=== PATIENT | male | born 1965 | race Caucasian/White ===

== ENCOUNTER 2018-01-14 10:33 | Inpatient (IN) | payer MEDICARE, MEDICAID ==
[~2018-01-14] VITALS: Ht 177.8 cm; Wt 92.3 kg
[2018-01-14 11:14] LABS: BASOPHILS % (AUTO) 0.3 % (0-1); EOSINOPHILS # (AUTO) 0.2 X10'3 (0-0.9); EOSINOPHILS % (AUTO) 2.6 % (0-6); HEMATOCRIT 36.3 % (42.0-52.0); HEMOGLOBIN 11.8 g/dl (14.0-17.9); LYMPHOCYTES # (AUTO) 1.4 X10'3 (1.1-4.8); MEAN CORPUSCULAR HEMOGLOBIN 29.2 PG (27.0-31.0); MEAN CORPUSCULAR HGB CONC 32.6 % (33.0-36.5); MEAN CORPUSCULAR VOLUME 89.5 FL (78-98); MEAN PLATELET VOLUME 7.8 FL (7.4-10.4); MONOCYTES # (AUTO) 0.5 X10'3 (0-0.9); MONOCYTES % (AUTO) 5.3 % (2-12); NEUTROPHILS % (AUTO) 76.8 % (42-75); PLATELET COUNT 305 X10'3 (140-440); RED BLOOD COUNT 4.06 X10'6 (4.70-6.10); RED CELL DISTRIBUTION WIDTH 15.7 % (11.5-14.5); WHITE BLOOD COUNT 9.1 X10'3 (4.5-11.0)
[2018-01-14] MEDS ORDERED: aspirin 81mg tab.chew PO ONE ×2 (11:15→12:00)
[2018-01-14] MEDS ORDERED: ondansetron/PF 4mg/2ml inj IV ONE (11:30)
[2018-01-14] MEDS ORDERED: haloperidol lactate 5mg/ml inj IM ONE (11:30)
[2018-01-14] MEDS ORDERED: normal saline 1000ML IV soln IVB ONE (11:30)
[2018-01-14] MEDS ORDERED: LORazepam 2 mg/ml vial IV ONE (11:30)
[2018-01-14 11:35] LABS: ALANINE AMINOTRANSFERASE 16 U/L (12-78); ALBUMIN 3.3 G/DL (3.4-5.0); ALBUMIN/GLOBULIN RATIO 0.5 (1.1-1.5); ALKALINE PHOSPHATASE 138 IU/L (46-116); AMYLASE 43 U/L (25-115); ANION GAP 14 (8-16); ASPARTATE AMINO TRANSFERASE 19 U/L (10-37); BILIRUBIN,TOTAL 0.7 MG/DL (0.1-1.0); BLOOD UREA NITROGEN 33 MG/DL (7-18); BUN/CREATININE RATIO 9.9 (5.4-32.0); CALCIUM 9.7 MG/DL (8.5-10.1); CHLORIDE 98 MMOL/L (99-107); CREATININE 3.32 MG/DL (0.60-1.10); LIPASE 64 U/L (73-393); POTASSIUM 4.3 MMOL/L (3.5-5.1); SODIUM 136 MMOL/L (135-145); TOTAL CARBON DIOXIDE 24.1 MMOL/L (24-32); TOTAL PROTEIN 9.7 G/DL (6.4-8.2); eGFR 20 ML/MIN
[2018-01-14 11:37] LABS: GLUCOSE 222 MG/DL (70-104)
[2018-01-14 11:44] LABS: INR 1.1 INR; PROTHROMBIN TIME 11.1 SECONDS (9.0-12.0)
[2018-01-14 12:00] LABS: ABG BASE EXCESS 1.5 mmol/L (-2.0-3.0); ABG HCO3 23.8 mmol/L (22.0-26.0); ABG OXYGEN SATURATION 97.3 % (95-98); ABG PCO2 (T) 30.2 mmHg (35.0-48.0); ABG PH (T) 7.514 (7.350-7.450); ABG PO2 (T) 91.7 mmHg (83-108); ALLEN'S TEST Positive; FCOHb 0.9 % (0.5-1.5); FMetHb 0.1 % (0.3-1.12); FO2Hb 96.3 % (94-100); TOTAL HEMOGLOBIN 12.3 G/dl (14.0-18.0)
[2018-01-14] MEDS ORDERED: heparin 10,000 units/1 ML INJ IV ONE (12:00)
[2018-01-14] MEDS ORDERED: pantoprazole 40 MG vial IV ONE (12:10)
[2018-01-14] MEDS ORDERED: famotidine/PF 10 mg/ml inj IV ONE (12:10)
[2018-01-14] MEDS: normal saline 1000ml 1,000 ML IV SCH (12:27)
[2018-01-14] MEDS ORDERED: morphine 2 MG/ML inj. syringe IV PRN (12:30)
[2018-01-14] MEDS ORDERED: acetaminophen 325mg tablet PO PRN ×2 (12:30)
[2018-01-14] MEDS ORDERED: magnesium Cl slow-release 64mg tablet PO PRN (12:30)
[2018-01-14] MEDS ORDERED: magnesium 4gm in 100ml NS 100 ML IV PRN (12:30)
[2018-01-14] MEDS ORDERED: potassium Cl 40MEQ/NS 500ml 500 ML IV PRN ×2 (12:30)
[2018-01-14] MEDS ORDERED: potassium Cl 20 mEq SR tablet PO PRN ×2 (12:30)
[2018-01-14] MEDS ORDERED: dextrose 50%-water 50ml dispensing syringe IV PRN ×2 (12:40)
[2018-01-14] MEDS ORDERED: MESSAGE TO PHARMACY PO ONE (12:40)
[2018-01-14] MEDS ORDERED: dextrose ORAL solution 15 GM/59 ML bottle PO PRN (12:40)
[2018-01-14] MEDS ORDERED: glucagon, human recombinant 1mg kit SUBCUT PRN (12:40)
[2018-01-14] MEDS: heparin 25,000 UNIT/250ml bag 250 ML IV SCH ×2 (12:53→20:47)
[2018-01-14] MEDS ORDERED: ASPI81TA52 PO (13:08)
[2018-01-14] MEDS ORDERED: CLON-529 PO (13:15)
[2018-01-14] MEDS ORDERED: DULO-31 PO (13:15)
[2018-01-14] MEDS ORDERED: AMLO-93 PO (13:15)
[2018-01-14] MEDS ORDERED: ACET1TAB14 PO (13:15)
[2018-01-14] MEDS ORDERED: ALLO100T PO (13:15)
[2018-01-14] MEDS ORDERED: CLOP75TA35 PO (13:15)
[2018-01-14] MEDS ORDERED: FLUT1AER INH (13:15)
[2018-01-14] MEDS ORDERED: PROM25TA14 PO (13:15)
[2018-01-14] MEDS ORDERED: QUET-1 PO (13:15)
[2018-01-14] MEDS ORDERED: PANT-47 PO (13:15)
[2018-01-14] MEDS ORDERED: METO-411 PO (13:15)
[2018-01-14] MEDS ORDERED: ALBU18HF2 INH (13:15)
[2018-01-14 15:00] VITALS: BP 159/86
[2018-01-14 18:00] VITALS: BP 150/70
[2018-01-14 19:53] LABS: HEMOGLOBIN A1C 7.5 % (4.5-6.2)
[2018-01-14 19:58] LABS: MAGNESIUM 1.6 MG/DL (1.5-2.4); PHOSPHORUS 3.7 MG/DL (2.3-4.5)
[2018-01-14] MEDS ORDERED: heparin, porcine 5000 units/ml vial SQ SCH (20:00)
[2018-01-14] MEDS: heparin 10,000 units/1 ML INJ IV PRN (20:38)
[2018-01-14 22:00] VITALS: BP 168/84
[2018-01-14] MEDS: insulin glargine (Lantus) pen - multi-dose SQ SCH (22:00)
[2018-01-15] VITALS (8 sets, daily range): BP systolic 108–188; BP diastolic 70–103
[2018-01-15] MEDS: normal saline 1000ml 1,000 ML IV SCH ×3 (02:06→22:22)
[2018-01-15 03:11] LABS: BASOPHILS % (AUTO) 0.4 % (0-1); EOSINOPHILS # (AUTO) 0.2 X10'3 (0-0.9); EOSINOPHILS % (AUTO) 2.9 % (0-6); HEMATOCRIT 34.4 % (42.0-52.0); HEMOGLOBIN 11.3 g/dl (14.0-17.9); LYMPHOCYTES # (AUTO) 1.5 X10'3 (1.1-4.8); LYMPHOCYTES % (AUTO) 20.4 % (21-51); MEAN CORPUSCULAR HEMOGLOBIN 29.6 PG (27.0-31.0); MEAN CORPUSCULAR HGB CONC 32.8 % (33.0-36.5); MEAN CORPUSCULAR VOLUME 90.2 FL (78-98); MEAN PLATELET VOLUME 8.1 FL (7.4-10.4); MONOCYTES # (AUTO) 0.6 X10'3 (0-0.9); MONOCYTES % (AUTO) 7.9 % (2-12); NEUTROPHILS # (AUTO) 5.2 X10'3 (1.8-7.7); NEUTROPHILS % (AUTO) 68.4 % (42-75); PLATELET COUNT 286 X10'3 (140-440); RED BLOOD COUNT 3.81 X10'6 (4.70-6.10); RED CELL DISTRIBUTION WIDTH 16.4 % (11.5-14.5); WHITE BLOOD COUNT 7.6 X10'3 (4.5-11.0)
[2018-01-15 03:49] LABS: ALANINE AMINOTRANSFERASE 15 U/L (12-78); ALBUMIN 2.8 G/DL (3.4-5.0); ALBUMIN/GLOBULIN RATIO 0.5 (1.1-1.5); ALKALINE PHOSPHATASE 115 IU/L (46-116); ANION GAP 11 (8-16); ASPARTATE AMINO TRANSFERASE 21 U/L (10-37); BILIRUBIN,TOTAL 0.4 MG/DL (0.1-1.0); BLOOD UREA NITROGEN 31 MG/DL (7-18); BUN/CREATININE RATIO 10.7 (5.4-32.0); CALCIUM 9.2 MG/DL (8.5-10.1); CHLORIDE 104 MMOL/L (99-107); CHOL/HDL RATIO 6.1 (0.00-4.99); CHOLESTEROL 244 MG/DL (0-200); HDL CHOLESTEROL 40 MG/DL (35-60); LDL CHOLESTEROL 178 MG/DL (50-100); MAGNESIUM 1.6 MG/DL (1.5-2.4); POTASSIUM 3.7 MMOL/L (3.5-5.1); SODIUM 141 MMOL/L (135-145); TOTAL CARBON DIOXIDE 25.6 MMOL/L (24-32); TOTAL PROTEIN 8.5 G/DL (6.4-8.2); TRIGLYCERIDES 104 MG/DL (20-135); eGFR 23 ML/MIN
[2018-01-15 03:51] LABS: GLUCOSE 193 MG/DL (70-104)
[2018-01-15] MEDS: K and/or MAG REPLACEMENT MC SCH (08:00)
[2018-01-15] MEDS: nicotine 14mg patch - 24hr TD SCH (08:09)
[2018-01-15] MEDS: insulin Lispro (HumaLOG) vial - multi-dose SQ SCH ×3 (09:13→19:18)
[2018-01-15] MEDS: heparin 25,000 UNIT/250ml bag 250 ML IV SCH (09:24)
[2018-01-15] MEDS: heparin 10,000 units/1 ML INJ IV PRN (09:26)
[2018-01-15] MEDS ORDERED: aspirin 81mg tablet.DR PO ONE (15:05)
[2018-01-15] MEDS: metoprolol tartrate 12.5mg (1/2 tablet) PO SCH (20:20)
[2018-01-15] MEDS: insulin glargine (Lantus) pen - multi-dose SQ SCH (21:09)
[2018-01-15] MEDS: hydrALAZINE 20mg/ml inj. IV PRN (22:34)
[2018-01-15] MEDS: HYDROcodone/acetaminophen 5mg/325mg tablet PO PRN (22:49)
[2018-01-15] MEDS: temazepam 15mg capsule PO PRN (22:49)
[2018-01-16] VITALS (8 sets, daily range): BP systolic 73–185; BP diastolic 41–98
[2018-01-16 06:49] LABS: ALANINE AMINOTRANSFERASE 15 U/L (12-78); ALBUMIN 2.8 G/DL (3.4-5.0); ALBUMIN/GLOBULIN RATIO 0.5 (1.1-1.5); ALKALINE PHOSPHATASE 110 IU/L (46-116); ANION GAP 12 (8-16); ASPARTATE AMINO TRANSFERASE 19 U/L (10-37); BILIRUBIN,TOTAL 0.5 MG/DL (0.1-1.0); BLOOD UREA NITROGEN 25 MG/DL (7-18); BUN/CREATININE RATIO 9.2 (5.4-32.0); CALCIUM 8.9 MG/DL (8.5-10.1); CHLORIDE 103 MMOL/L (99-107); CREATININE 2.72 MG/DL (0.60-1.10); MAGNESIUM 1.4 MG/DL (1.5-2.4); POTASSIUM 3.4 MMOL/L (3.5-5.1); SODIUM 140 MMOL/L (135-145); TOTAL CARBON DIOXIDE 25.4 MMOL/L (24-32); TOTAL PROTEIN 8.3 G/DL (6.4-8.2); eGFR 25 ML/MIN
[2018-01-16 06:53] LABS: GLUCOSE 189 MG/DL (70-104)
[2018-01-16 06:55] LABS: BASOPHILS % (AUTO) 0.5 % (0-1); EOSINOPHILS # (AUTO) 0.2 X10'3 (0-0.9); EOSINOPHILS % (AUTO) 2.8 % (0-6); HEMOGLOBIN 11.6 g/dl (14.0-17.9); LYMPHOCYTES # (AUTO) 1.5 X10'3 (1.1-4.8); LYMPHOCYTES % (AUTO) 20.6 % (21-51); MEAN CORPUSCULAR HEMOGLOBIN 29.2 PG (27.0-31.0); MEAN CORPUSCULAR VOLUME 88.6 FL (78-98); MONOCYTES # (AUTO) 0.7 X10'3 (0-0.9); MONOCYTES % (AUTO) 9.3 % (2-12); NEUTROPHILS % (AUTO) 66.8 % (42-75); PLATELET COUNT 280 X10'3 (140-440); RED BLOOD COUNT 3.95 X10'6 (4.70-6.10); WHITE BLOOD COUNT 7.4 X10'3 (4.5-11.0)
[2018-01-16] MEDS: K and/or MAG REPLACEMENT MC SCH (07:02)
[2018-01-16] MEDS: ondansetron/PF 4mg/2ml inj IV PRN (07:10)
[2018-01-16] MEDS: metoprolol tartrate 12.5mg (1/2 tablet) PO SCH ×2 (08:00→20:00)
[2018-01-16] MEDS: aspirin 81mg tablet.DR PO SCH (08:00)
[2018-01-16] MEDS: atorvastatin 20mg tablet PO SCH (08:00)
[2018-01-16] MEDS: insulin Lispro (HumaLOG) vial - multi-dose SQ SCH ×2 (08:43→12:34)
[2018-01-16] MEDS: hydrALAZINE 20mg/ml inj. IV PRN (08:59)
[2018-01-16] MEDS: nicotine 14mg patch - 24hr TD SCH (09:01)
[2018-01-16] MEDS: HYDROcodone/acetaminophen 5mg/325mg tablet PO PRN (09:08)
[2018-01-16] MEDS: magnesium hydroxide 30ml (MOM) UD suspension PO PRN (09:09)
[2018-01-16] MEDS ORDERED: LIDOcaine 1% 30ml vial 5 ML in potassium Cl 40MEQ/NS 500ml 500 ML IV PRN (10:00)
[2018-01-16] MEDS ORDERED: albuterol 2.5 MG/3 ML nebule NEB PRN (13:15)
[2018-01-16] MEDS: metoclopramide 5 mg/ml inj IV PRN (15:11)
[2018-01-16] MEDS: furosemide 40mg/4ml inj IV SCH (19:25)
[2018-01-16] MEDS: magnesium 1gm/100ml D5W IVPB 100 ML IV PRN ×2 (19:26→21:42)
[2018-01-16] MEDS: pantoprazole 40mg Tablet.DR PO SCH (20:00)
[2018-01-16] MEDS: albuterol 2.5 MG/3 ML nebule NEB SCH (20:12)
[2018-01-16] MEDS: BUDESONIDE 0.25 MG/2 ML AMPUL.NEB IH SCH (20:12)
[2018-01-16] MEDS: quetiapine 100mg tablet PO SCH (20:43)
[2018-01-16] MEDS: insulin glargine (Lantus) pen - multi-dose SQ SCH (20:48)
[2018-01-17] VITALS (8 sets, daily range): BP systolic 82–154; BP diastolic 48–85
[2018-01-17] MEDS: albuterol 2.5 MG/3 ML nebule NEB SCH ×4 (06:42→19:15)
[2018-01-17] MEDS: BUDESONIDE 0.25 MG/2 ML AMPUL.NEB IH SCH ×2 (06:42→19:15)
[2018-01-17 06:50] LABS: BASOPHILS % (AUTO) 0.3 % (0-1); EOSINOPHILS # (AUTO) 0.2 X10'3 (0-0.9); EOSINOPHILS % (AUTO) 2.9 % (0-6); HEMATOCRIT 32.4 % (42.0-52.0); HEMOGLOBIN 10.5 g/dl (14.0-17.9); LYMPHOCYTES # (AUTO) 1.4 X10'3 (1.1-4.8); LYMPHOCYTES % (AUTO) 18.7 % (21-51); MEAN CORPUSCULAR HEMOGLOBIN 29.1 PG (27.0-31.0); MEAN CORPUSCULAR HGB CONC 32.6 % (33.0-36.5); MEAN CORPUSCULAR VOLUME 89.2 FL (78-98); MEAN PLATELET VOLUME 8.3 FL (7.4-10.4); MONOCYTES # (AUTO) 0.6 X10'3 (0-0.9); MONOCYTES % (AUTO) 7.9 % (2-12); NEUTROPHILS # (AUTO) 5.4 X10'3 (1.8-7.7); NEUTROPHILS % (AUTO) 70.2 % (42-75); PLATELET COUNT 250 X10'3 (140-440); RED BLOOD COUNT 3.63 X10'6 (4.70-6.10); RED CELL DISTRIBUTION WIDTH 15.8 % (11.5-14.5); WHITE BLOOD COUNT 7.6 X10'3 (4.5-11.0)
[2018-01-17 07:18] LABS: ALANINE AMINOTRANSFERASE 11 U/L (12-78); ALBUMIN 2.7 G/DL (3.4-5.0); ALBUMIN/GLOBULIN RATIO 0.5 (1.1-1.5); ALKALINE PHOSPHATASE 101 IU/L (46-116); ANION GAP 12 (8-16); ASPARTATE AMINO TRANSFERASE 18 U/L (10-37); BILIRUBIN,TOTAL 0.4 MG/DL (0.1-1.0); BLOOD UREA NITROGEN 28 MG/DL (7-18); BUN/CREATININE RATIO 9.7 (5.4-32.0); CALCIUM 9.1 MG/DL (8.5-10.1); CHLORIDE 103 MMOL/L (99-107); CREATININE 2.88 MG/DL (0.60-1.10); GLUCOSE 204 MG/DL (70-104); MAGNESIUM 2.8 MG/DL (1.5-2.4); POTASSIUM 3.5 MMOL/L (3.5-5.1); SODIUM 139 MMOL/L (135-145); TOTAL CARBON DIOXIDE 23.6 MMOL/L (24-32); TOTAL PROTEIN 7.7 G/DL (6.4-8.2); eGFR 23 ML/MIN
[2018-01-17] MEDS: aspirin 81mg tablet.DR PO SCH ×2 (07:29→07:43)
[2018-01-17] MEDS: atorvastatin 20mg tablet PO SCH (07:41)
[2018-01-17] MEDS: allopurinol 100mg tablet PO SCH (07:41)
[2018-01-17] MEDS: clopidogrel 75mg tablet PO SCH (07:42)
[2018-01-17] MEDS: pantoprazole 40mg Tablet.DR PO SCH ×2 (07:42→20:48)
[2018-01-17] MEDS: duloxetine 30mg CAPSULE.DR PO SCH (07:42)
[2018-01-17] MEDS: furosemide 40mg/4ml inj IV SCH ×2 (07:43→20:48)
[2018-01-17] MEDS: nicotine 14mg patch - 24hr TD SCH (07:43)
[2018-01-17] MEDS: metoprolol tartrate 12.5mg (1/2 tablet) PO SCH ×2 (07:48→20:48)
[2018-01-17] MEDS: metoprolol succinate 25mg (24-HOUR) SR. Tablet PO SCH (07:49)
[2018-01-17] MEDS: lisinopril 20mg tablet PO SCH (07:49)
[2018-01-17] MEDS: amLODIPine 5mg tablet PO SCH (07:49)
[2018-01-17] MEDS: K and/or MAG REPLACEMENT MC SCH (08:00)
[2018-01-17] MEDS ORDERED: duloxetine 30mg CAPSULE.DR PO SCH (08:00)
[2018-01-17] MEDS: NUT.TX.GLUC.INTOLER,LAC-FR,SOY (GLUCERNA) 237 ML PO SCH ×2 (08:00→13:00)
[2018-01-17] MEDS: insulin Lispro (HumaLOG) vial - multi-dose SQ SCH ×3 (09:18→21:20)
[2018-01-17] MEDS: quetiapine 100mg tablet PO SCH (20:51)
[2018-01-17] MEDS: insulin glargine (Lantus) pen - multi-dose SQ SCH (21:21)
[2018-01-18] VITALS (14 sets, daily range): BP systolic 69–177; BP diastolic 45–90
[2018-01-18 05:39] LABS: BASOPHILS % (AUTO) 0.4 % (0-1); EOSINOPHILS # (AUTO) 0.3 X10'3 (0-0.9); EOSINOPHILS % (AUTO) 3.6 % (0-6); HEMATOCRIT 31.5 % (42.0-52.0); HEMOGLOBIN 10.3 g/dl (14.0-17.9); LYMPHOCYTES # (AUTO) 1.9 X10'3 (1.1-4.8); LYMPHOCYTES % (AUTO) 25.5 % (21-51); MEAN CORPUSCULAR HEMOGLOBIN 29.2 PG (27.0-31.0); MEAN CORPUSCULAR HGB CONC 32.7 % (33.0-36.5); MEAN CORPUSCULAR VOLUME 89.2 FL (78-98); MEAN PLATELET VOLUME 8.3 FL (7.4-10.4); MONOCYTES # (AUTO) 0.7 X10'3 (0-0.9); MONOCYTES % (AUTO) 9.4 % (2-12); NEUTROPHILS # (AUTO) 4.6 X10'3 (1.8-7.7); NEUTROPHILS % (AUTO) 61.1 % (42-75); PLATELET COUNT 244 X10'3 (140-440); RED BLOOD COUNT 3.54 X10'6 (4.70-6.10); RED CELL DISTRIBUTION WIDTH 16.5 % (11.5-14.5); WHITE BLOOD COUNT 7.5 X10'3 (4.5-11.0)
[2018-01-18 06:01] LABS: ALANINE AMINOTRANSFERASE 17 U/L (12-78); ALBUMIN 2.9 G/DL (3.4-5.0); ALBUMIN/GLOBULIN RATIO 0.5 (1.1-1.5); ALKALINE PHOSPHATASE 115 IU/L (46-116); ANION GAP 11 (8-16); ASPARTATE AMINO TRANSFERASE 21 U/L (10-37); BILIRUBIN,TOTAL 0.4 MG/DL (0.1-1.0); BLOOD UREA NITROGEN 36 MG/DL (7-18); BUN/CREATININE RATIO 10.9 (5.4-32.0); CALCIUM 9.3 MG/DL (8.5-10.1); CHLORIDE 101 MMOL/L (99-107); CREATININE 3.29 MG/DL (0.60-1.10); MAGNESIUM 2.5 MG/DL (1.5-2.4); POTASSIUM 3.5 MMOL/L (3.5-5.1); SODIUM 138 MMOL/L (135-145); TOTAL CARBON DIOXIDE 26.5 MMOL/L (24-32); TOTAL PROTEIN 8.3 G/DL (6.4-8.2); eGFR 20 ML/MIN
[2018-01-18] MEDS ORDERED: normal saline 1000ml 250 ML IV PRN (06:02)
[2018-01-18] MEDS ORDERED: normal saline 1000ml 100 ML IV PRN (06:02)
[2018-01-18 06:04] LABS: GLUCOSE 188 MG/DL (70-104)
[2018-01-18] MEDS ORDERED: heparin 1,000 units/ml 10ml inj HE ONE ×2 (06:10)
[2018-01-18] MEDS: albuterol 2.5 MG/3 ML nebule NEB SCH ×4 (07:00→20:56)
[2018-01-18] MEDS: BUDESONIDE 0.25 MG/2 ML AMPUL.NEB IH SCH ×2 (07:20→20:00)
[2018-01-18] MEDS: metoprolol succinate 25mg (24-HOUR) SR. Tablet PO SCH (08:00)
[2018-01-18] MEDS: K and/or MAG REPLACEMENT MC SCH (08:00)
[2018-01-18] MEDS: aspirin 81mg tablet.DR PO SCH ×2 (08:00→09:19)
[2018-01-18] MEDS: clopidogrel 75mg tablet PO SCH (08:00)
[2018-01-18] MEDS: amLODIPine 5mg tablet PO SCH (09:19)
[2018-01-18] MEDS: metoprolol tartrate 12.5mg (1/2 tablet) PO SCH ×2 (09:19→21:01)
[2018-01-18] MEDS: allopurinol 100mg tablet PO SCH (09:19)
[2018-01-18] MEDS: pantoprazole 40mg Tablet.DR PO SCH ×2 (09:20→21:02)
[2018-01-18] MEDS: lisinopril 20mg tablet PO SCH (09:20)
[2018-01-18] MEDS: duloxetine 30mg CAPSULE.DR PO SCH (09:20)
[2018-01-18] MEDS: atorvastatin 20mg tablet PO SCH (09:20)
[2018-01-18] MEDS: furosemide 40mg/4ml inj IV SCH ×3 (09:26→21:00)
[2018-01-18] MEDS: insulin Lispro (HumaLOG) vial - multi-dose SQ SCH ×2 (09:26→13:05)
[2018-01-18] MEDS: nicotine 14mg patch - 24hr TD SCH (09:35)
[2018-01-18] MEDS ORDERED: midazolam 2 mg/2 ml injection IV PRN (10:40)
[2018-01-18] MEDS ORDERED: LIDOcaine 1%/PF 5ML 10 MG/ML VIAL SQ ONE (10:40)
[2018-01-18] MEDS ORDERED: fentaNYL/PF 50MCG/1 ML 2ML syringe IV PRN (10:40)
[2018-01-18] MEDS ORDERED: heparin 1,000 units/ml 10ml inj ICATH ONE (10:40)
[2018-01-18] MEDS ORDERED: LIDOcaine 1%/PF 5ML 10 MG/ML VIAL ONE (10:56)
[2018-01-18] MEDS ORDERED: heparin 1,000unit/ml 10ml vial 10 ML ONE (11:12)
[2018-01-18] MEDS ORDERED: fentaNYL/PF 50MCG/1 ML 2ML syringe ONE (11:13)
[2018-01-18] MEDS ORDERED: midazolam 2 mg/2 ml injection ONE (11:13)
[2018-01-18] MEDS ORDERED: ondansetron/PF 4mg/2ml inj ONE (11:41)
[2018-01-18] MEDS ORDERED: ondansetron/PF 4mg/2ml inj IV ONE (11:45)
[2018-01-18] MEDS: NUT.TX.GLUC.INTOLER,LAC-FR,SOY (GLUCERNA) 237 ML PO SCH (18:00)
[2018-01-18] MEDS: insulin glargine (Lantus) pen - multi-dose SQ SCH (21:00)
[2018-01-18] MEDS: quetiapine 100mg tablet PO SCH (21:02)
[2018-01-19] VITALS (7 sets, daily range): BP systolic 85–147; BP diastolic 55–75
[2018-01-19 06:33] LABS: BASOPHILS # (AUTO) 0.1 X10'3 (0-0.2); BASOPHILS % (AUTO) 0.7 % (0-1); EOSINOPHILS # (AUTO) 0.3 X10'3 (0-0.9); EOSINOPHILS % (AUTO) 3.2 % (0-6); HEMATOCRIT 35.4 % (42.0-52.0); HEMOGLOBIN 11.7 g/dl (14.0-17.9); LYMPHOCYTES # (AUTO) 1.8 X10'3 (1.1-4.8); LYMPHOCYTES % (AUTO) 23.2 % (21-51); MEAN CORPUSCULAR HEMOGLOBIN 29.6 PG (27.0-31.0); MEAN CORPUSCULAR VOLUME 89.7 FL (78-98); MEAN PLATELET VOLUME 8.2 FL (7.4-10.4); MONOCYTES # (AUTO) 0.8 X10'3 (0-0.9); MONOCYTES % (AUTO) 9.4 % (2-12); NEUTROPHILS # (AUTO) 5.1 X10'3 (1.8-7.7); NEUTROPHILS % (AUTO) 63.5 % (42-75); PLATELET COUNT 261 X10'3 (140-440); RED BLOOD COUNT 3.95 X10'6 (4.70-6.10); RED CELL DISTRIBUTION WIDTH 16.7 % (11.5-14.5)
[2018-01-19 06:52] LABS: ALANINE AMINOTRANSFERASE 17 U/L (12-78); ALBUMIN 2.8 G/DL (3.4-5.0); ALBUMIN/GLOBULIN RATIO 0.5 (1.1-1.5); ALKALINE PHOSPHATASE 114 IU/L (46-116); ANION GAP 8 (8-16); ASPARTATE AMINO TRANSFERASE 20 U/L (10-37); BILIRUBIN,TOTAL 0.6 MG/DL (0.1-1.0); BLOOD UREA NITROGEN 26 MG/DL (7-18); BUN/CREATININE RATIO 9.2 (5.4-32.0); CALCIUM 9.2 MG/DL (8.5-10.1); CHLORIDE 100 MMOL/L (99-107); CREATININE 2.82 MG/DL (0.60-1.10); GLUCOSE 160 MG/DL (70-104); POTASSIUM 3.7 MMOL/L (3.5-5.1); SODIUM 136 MMOL/L (135-145); TOTAL PROTEIN 8.1 G/DL (6.4-8.2); eGFR 24 ML/MIN
[2018-01-19] MEDS: albuterol 2.5 MG/3 ML nebule NEB SCH ×4 (07:22→19:46)
[2018-01-19] MEDS: BUDESONIDE 0.25 MG/2 ML AMPUL.NEB IH SCH ×2 (07:22→19:46)
[2018-01-19] MEDS: clopidogrel 75mg tablet PO SCH (07:26)
[2018-01-19] MEDS: pantoprazole 40mg Tablet.DR PO SCH ×2 (07:26→22:31)
[2018-01-19] MEDS: metoprolol tartrate 12.5mg (1/2 tablet) PO SCH ×2 (07:27→22:31)
[2018-01-19] MEDS: amLODIPine 5mg tablet PO SCH (07:27)
[2018-01-19] MEDS: allopurinol 100mg tablet PO SCH (07:27)
[2018-01-19] MEDS: aspirin 81mg tablet.DR PO SCH ×2 (07:27→07:29)
[2018-01-19] MEDS: atorvastatin 20mg tablet PO SCH (07:28)
[2018-01-19] MEDS: lisinopril 20mg tablet PO SCH (07:28)
[2018-01-19] MEDS: furosemide 40mg/4ml inj IV SCH ×2 (07:28→22:41)
[2018-01-19] MEDS: duloxetine 30mg CAPSULE.DR PO SCH (07:28)
[2018-01-19] MEDS: nicotine 14mg patch - 24hr TD SCH (07:28)
[2018-01-19] MEDS: metoprolol succinate 25mg (24-HOUR) SR. Tablet PO SCH (07:29)
[2018-01-19] MEDS: K and/or MAG REPLACEMENT MC SCH (08:00)
[2018-01-19] MEDS: HYDROcodone/acetaminophen 5mg/325mg tablet PO PRN (09:46)
[2018-01-19] MEDS: insulin Lispro (HumaLOG) vial - multi-dose SQ SCH ×3 (09:51→19:23)
[2018-01-19] MEDS ORDERED: normal saline 1000ml 250 ML IV PRN (10:58)
[2018-01-19] MEDS ORDERED: heparin 1,000unit/ml 10ml vial 10 ML IV ONE (10:58)
[2018-01-19] MEDS ORDERED: heparin 1,000 units/ml 10ml inj HE ONE ×2 (11:05)
[2018-01-19] MEDS ORDERED: albumin (human) 25% 100ml IV 100 ML IV ONE (11:50)
[2018-01-19] MEDS: ondansetron/PF 4mg/2ml inj IV PRN (19:25)
[2018-01-19] MEDS: quetiapine 100mg tablet PO SCH (22:31)
[2018-01-19] MEDS: temazepam 15mg capsule PO PRN (22:31)
[2018-01-19] MEDS: insulin glargine (Lantus) pen - multi-dose SQ SCH (22:40)
[2018-01-20] VITALS (8 sets, daily range): BP systolic 80–164; BP diastolic 48–91
[2018-01-20 07:12] LABS: HBSAG SCREEN Negative (Negative)
[2018-01-20] MEDS: BUDESONIDE 0.25 MG/2 ML AMPUL.NEB IH SCH ×2 (07:22→20:12)
[2018-01-20] MEDS: albuterol 2.5 MG/3 ML nebule NEB SCH ×4 (07:22→20:12)
[2018-01-20] MEDS: ondansetron/PF 4mg/2ml inj IV PRN (07:40)
[2018-01-20] MEDS: furosemide 40mg/4ml inj IV SCH (07:40)
[2018-01-20] MEDS: metoprolol succinate 25mg (24-HOUR) SR. Tablet PO SCH (08:00)
[2018-01-20] MEDS: duloxetine 30mg CAPSULE.DR PO SCH (08:00)
[2018-01-20] MEDS: pantoprazole 40mg Tablet.DR PO SCH ×2 (08:00→20:35)
[2018-01-20] MEDS: allopurinol 100mg tablet PO SCH (08:00)
[2018-01-20] MEDS: atorvastatin 20mg tablet PO SCH (08:00)
[2018-01-20] MEDS: clopidogrel 75mg tablet PO SCH (08:00)
[2018-01-20] MEDS: metoprolol tartrate 12.5mg (1/2 tablet) PO SCH ×2 (08:00→20:35)
[2018-01-20] MEDS: K and/or MAG REPLACEMENT MC SCH (08:00)
[2018-01-20] MEDS: amLODIPine 5mg tablet PO SCH (08:00)
[2018-01-20] MEDS: nicotine 14mg patch - 24hr TD SCH (08:00)
[2018-01-20] MEDS: lisinopril 20mg tablet PO SCH (08:00)
[2018-01-20] MEDS: aspirin 81mg tablet.DR PO SCH ×2 (08:00)
[2018-01-20] MEDS ORDERED: normal saline 500ml IV soln 500 ML IV ONE (09:55)
[2018-01-20] MEDS: metoclopramide 5 mg/ml inj IV PRN (12:10)
[2018-01-20] MEDS: insulin Lispro (HumaLOG) vial - multi-dose SQ SCH (13:06)
[2018-01-20] MEDS ORDERED: normal saline 1000ml 1,000 ML IV ONE (17:25)
[2018-01-20] MEDS: quetiapine 100mg tablet PO SCH (20:35)
[2018-01-20] MEDS: insulin glargine (Lantus) pen - multi-dose SQ SCH (20:44)
[2018-01-20] MEDS: magnesium hydroxide 30ml (MOM) UD suspension PO PRN (20:51)
[2018-01-21 03:00] VITALS: BP 146/76
[2018-01-21 05:39] LABS: MAGNESIUM 2.1 MG/DL (1.5-2.4)
[2018-01-21] MEDS: duloxetine 30mg CAPSULE.DR PO SCH (07:49)
[2018-01-21] MEDS: metoprolol succinate 25mg (24-HOUR) SR. Tablet PO SCH (07:51)
[2018-01-21] MEDS: aspirin 81mg tablet.DR PO SCH ×2 (07:52→08:00)
[2018-01-21] MEDS: metoprolol tartrate 12.5mg (1/2 tablet) PO SCH ×2 (07:52→20:00)
[2018-01-21] MEDS: pantoprazole 40mg Tablet.DR PO SCH ×2 (07:52→20:00)
[2018-01-21] MEDS: clopidogrel 75mg tablet PO SCH (07:52)
[2018-01-21] MEDS: atorvastatin 20mg tablet PO SCH (07:53)
[2018-01-21] MEDS: amLODIPine 5mg tablet PO SCH (07:53)
[2018-01-21] MEDS: allopurinol 100mg tablet PO SCH (07:53)
[2018-01-21] MEDS: nicotine 14mg patch - 24hr TD SCH (07:55)
[2018-01-21] MEDS: BUDESONIDE 0.25 MG/2 ML AMPUL.NEB IH SCH ×2 (08:00→20:00)
[2018-01-21] MEDS: lisinopril 20mg tablet PO SCH (08:00)
[2018-01-21] MEDS: K and/or MAG REPLACEMENT MC SCH (08:00)
[2018-01-21] MEDS: albuterol 2.5 MG/3 ML nebule NEB SCH ×3 (08:21→16:24)
[2018-01-21] MEDS ORDERED: normal saline 1000ml 250 ML IV PRN (08:56)
[2018-01-21] MEDS ORDERED: heparin 1,000unit/ml 10ml vial 10 ML IV ONE (08:56)
[2018-01-21 09:00] VITALS: BP_SYST 163; BP_SYST 88; BP_DIAS 55; BP_DIAS 97
[2018-01-21] MEDS ORDERED: heparin 1,000 units/ml 10ml inj HE ONE ×2 (09:00)
[2018-01-21 09:16] VITALS: BP 154/85
[2018-01-21 09:24] LABS: BASOPHILS # (AUTO) 0.1 X10'3 (0-0.2); BASOPHILS % (AUTO) 0.7 % (0-1); EOSINOPHILS # (AUTO) 0.2 X10'3 (0-0.9); EOSINOPHILS % (AUTO) 2.9 % (0-6); HEMATOCRIT 34.9 % (42.0-52.0); HEMOGLOBIN 11.5 g/dl (14.0-17.9); LYMPHOCYTES # (AUTO) 1.4 X10'3 (1.1-4.8); LYMPHOCYTES % (AUTO) 18.7 % (21-51); MEAN CORPUSCULAR HEMOGLOBIN 29.6 PG (27.0-31.0); MEAN CORPUSCULAR HGB CONC 33.1 % (33.0-36.5); MEAN CORPUSCULAR VOLUME 89.6 FL (78-98); MEAN PLATELET VOLUME 9.8 FL (7.4-10.4); MONOCYTES # (AUTO) 0.9 X10'3 (0-0.9); MONOCYTES % (AUTO) 12.2 % (2-12); NEUTROPHILS % (AUTO) 65.5 % (42-75); PLATELET COUNT 235 X10'3 (140-440); RED BLOOD COUNT 3.89 X10'6 (4.70-6.10); RED CELL DISTRIBUTION WIDTH 16.9 % (11.5-14.5); WHITE BLOOD COUNT 7.6 X10'3 (4.5-11.0)
[2018-01-21 09:25] LABS: ALANINE AMINOTRANSFERASE 22 U/L (12-78); ALBUMIN 3.1 G/DL (3.4-5.0); ALBUMIN/GLOBULIN RATIO 0.6 (1.1-1.5); ALKALINE PHOSPHATASE 111 IU/L (46-116); ANION GAP 10 (8-16); ASPARTATE AMINO TRANSFERASE 25 U/L (10-37); BILIRUBIN,TOTAL 0.5 MG/DL (0.1-1.0); BLOOD UREA NITROGEN 41 MG/DL (7-18); BUN/CREATININE RATIO 11.5 (5.4-32.0); CALCIUM 9.3 MG/DL (8.5-10.1); CHLORIDE 101 MMOL/L (99-107); CREATININE 3.56 MG/DL (0.60-1.10); GLUCOSE 228 MG/DL (70-104); POTASSIUM 4.1 MMOL/L (3.5-5.1); SODIUM 139 MMOL/L (135-145); TOTAL CARBON DIOXIDE 28.4 MMOL/L (24-32); TOTAL PROTEIN 8.2 G/DL (6.4-8.2); eGFR 18 ML/MIN
[2018-01-21 09:42] LABS: PHOSPHORUS 4.8 MG/DL (2.3-4.5)
[2018-01-21] MEDS: insulin Lispro (HumaLOG) vial - multi-dose SQ SCH ×3 (10:27→21:57)
[2018-01-21 11:00] VITALS: BP 127/87
[2018-01-21] MEDS: ondansetron/PF 4mg/2ml inj IV PRN ×2 (14:15→20:00)
[2018-01-21] MEDS: magnesium hydroxide 30ml (MOM) UD suspension PO PRN (17:37)
[2018-01-21 19:00] VITALS: BP 126/74
[2018-01-21] MEDS: quetiapine 100mg tablet PO SCH (21:00)
[2018-01-21] MEDS: insulin glargine (Lantus) pen - multi-dose SQ SCH (21:55)
[2018-01-21 23:00] VITALS: BP 116/74
[2018-01-22] VITALS (7 sets, daily range): BP systolic 89–154; BP diastolic 50–94
[2018-01-22 05:22] LABS: BASOPHILS % (AUTO) 0.4 % (0-1); EOSINOPHILS # (AUTO) 0.3 X10'3 (0-0.9); EOSINOPHILS % (AUTO) 3.8 % (0-6); HEMATOCRIT 35.6 % (42.0-52.0); HEMOGLOBIN 11.5 g/dl (14.0-17.9); LYMPHOCYTES % (AUTO) 27.8 % (21-51); MEAN CORPUSCULAR HGB CONC 32.2 % (33.0-36.5); MEAN CORPUSCULAR VOLUME 89.9 FL (78-98); MEAN PLATELET VOLUME 9.2 FL (7.4-10.4); MONOCYTES # (AUTO) 0.8 X10'3 (0-0.9); MONOCYTES % (AUTO) 11.3 % (2-12); NEUTROPHILS # (AUTO) 4.1 X10'3 (1.8-7.7); NEUTROPHILS % (AUTO) 56.7 % (42-75); PLATELET COUNT 235 X10'3 (140-440); RED BLOOD COUNT 3.96 X10'6 (4.70-6.10); WHITE BLOOD COUNT 7.2 X10'3 (4.5-11.0)
[2018-01-22 06:01] LABS: ALBUMIN 2.9 G/DL (3.4-5.0); ANION GAP 8 (8-16); BLOOD UREA NITROGEN 26 MG/DL (7-18); BUN/CREATININE RATIO 10.4 (5.4-32.0); CALCIUM 9.3 MG/DL (8.5-10.1); CHLORIDE 101 MMOL/L (99-107); CREATININE 2.51 MG/DL (0.60-1.10); GLUCOSE 121 MG/DL (70-104); MAGNESIUM 2.3 MG/DL (1.5-2.4); PHOSPHORUS 3.6 MG/DL (2.3-4.5); POTASSIUM 3.7 MMOL/L (3.5-5.1); SODIUM 139 MMOL/L (135-145); eGFR 27 ML/MIN
[2018-01-22] MEDS: albuterol 2.5 MG/3 ML nebule NEB SCH ×4 (07:00→19:00)
[2018-01-22] MEDS: aspirin 81mg tablet.DR PO SCH ×2 (08:00→08:24)
[2018-01-22] MEDS: BUDESONIDE 0.25 MG/2 ML AMPUL.NEB IH SCH ×2 (08:00→19:56)
[2018-01-22] MEDS: clopidogrel 75mg tablet PO SCH (08:19)
[2018-01-22] MEDS: atorvastatin 20mg tablet PO SCH (08:20)
[2018-01-22] MEDS: amLODIPine 5mg tablet PO SCH (08:20)
[2018-01-22] MEDS: lisinopril 20mg tablet PO SCH (08:21)
[2018-01-22] MEDS: duloxetine 30mg CAPSULE.DR PO SCH (08:24)
[2018-01-22] MEDS: pantoprazole 40mg Tablet.DR PO SCH ×2 (08:24→20:26)
[2018-01-22] MEDS: allopurinol 100mg tablet PO SCH (08:25)
[2018-01-22] MEDS: nicotine 14mg patch - 24hr TD SCH (08:25)
[2018-01-22] MEDS: NUT.TX.GLUC.INTOLER,LAC-FR,SOY (GLUCERNA) 237 ML PO SCH ×3 (08:26→18:00)
[2018-01-22] MEDS: K and/or MAG REPLACEMENT MC SCH (08:27)
[2018-01-22] MEDS: insulin Lispro (HumaLOG) vial - multi-dose SQ SCH ×3 (09:07→18:50)
[2018-01-22] MEDS: metoprolol succinate 25mg (24-HOUR) SR. Tablet PO SCH (09:09)
[2018-01-22] MEDS ORDERED: polyethylene glycol 3350 17gm powd pack PO ONE (09:35)
[2018-01-22] MEDS ORDERED: docusate sod 100mg capsule PO ONE (09:35)
[2018-01-22] MEDS: albumin (human) 25% 100ml IV 100 ML IV SCH ×2 (17:28→23:38)
[2018-01-22] MEDS: midodrine tablet 2.5 MG TABLET PO SCH ×2 (17:28→23:38)
[2018-01-22] MEDS: polyethylene glycol 3350 17gm powd pack PO SCH (20:22)
[2018-01-22] MEDS: docusate sod 100mg capsule PO SCH (20:25)
[2018-01-22] MEDS: QUEtiapine 25mg tablet PO SCH (20:26)
[2018-01-22] MEDS: insulin glargine (Lantus) pen - multi-dose SQ SCH (22:03)
[2018-01-23] VITALS (7 sets, daily range): BP systolic 105–170; BP diastolic 69–98
[2018-01-23] MEDS ORDERED: midodrine 5mg tablet PO SCH
[2018-01-23] MEDS: temazepam 15mg capsule PO PRN (00:01)
[2018-01-23 05:25] LABS: BASOPHILS % (AUTO) 0.5 % (0-1); EOSINOPHILS # (AUTO) 0.2 X10'3 (0-0.9); EOSINOPHILS % (AUTO) 2.6 % (0-6); HEMATOCRIT 34.6 % (42.0-52.0); HEMOGLOBIN 11.4 g/dl (14.0-17.9); LYMPHOCYTES # (AUTO) 2.2 X10'3 (1.1-4.8); LYMPHOCYTES % (AUTO) 28.3 % (21-51); MEAN CORPUSCULAR HEMOGLOBIN 29.3 PG (27.0-31.0); MEAN CORPUSCULAR VOLUME 88.6 FL (78-98); MEAN PLATELET VOLUME 9.1 FL (7.4-10.4); MONOCYTES # (AUTO) 0.7 X10'3 (0-0.9); MONOCYTES % (AUTO) 8.9 % (2-12); NEUTROPHILS # (AUTO) 4.6 X10'3 (1.8-7.7); NEUTROPHILS % (AUTO) 59.7 % (42-75); PLATELET COUNT 217 X10'3 (140-440); RED BLOOD COUNT 3.91 X10'6 (4.70-6.10); RED CELL DISTRIBUTION WIDTH 16.5 % (11.5-14.5); WHITE BLOOD COUNT 7.7 X10'3 (4.5-11.0)
[2018-01-23 05:51] LABS: ALBUMIN 3.5 G/DL (3.4-5.0); ANION GAP 10 (8-16); BLOOD UREA NITROGEN 31 MG/DL (7-18); BUN/CREATININE RATIO 10.7 (5.4-32.0); CALCIUM 9.3 MG/DL (8.5-10.1); CHLORIDE 100 MMOL/L (99-107); GLUCOSE 127 MG/DL (70-104); MAGNESIUM 2.3 MG/DL (1.5-2.4); PHOSPHORUS 3.7 MG/DL (2.3-4.5); POTASSIUM 3.7 MMOL/L (3.5-5.1); SODIUM 136 MMOL/L (135-145); TOTAL CARBON DIOXIDE 26.5 MMOL/L (24-32); eGFR 23 ML/MIN
[2018-01-23] MEDS: albuterol 2.5 MG/3 ML nebule NEB SCH ×4 (07:00→19:00)
[2018-01-23 07:07] LABS: HBSAG SCREEN Negative (Negative)
[2018-01-23] MEDS: BUDESONIDE 0.25 MG/2 ML AMPUL.NEB IH SCH ×2 (07:20→20:00)
[2018-01-23] MEDS ORDERED: amLODIPine 5mg tablet PO SCH (08:00)
[2018-01-23] MEDS: pantoprazole 40mg Tablet.DR PO SCH ×2 (08:19→19:06)
[2018-01-23] MEDS: duloxetine 30mg CAPSULE.DR PO SCH (08:23)
[2018-01-23] MEDS: docusate sod 100mg capsule PO SCH ×2 (08:24→19:05)
[2018-01-23] MEDS: atorvastatin 20mg tablet PO SCH (08:24)
[2018-01-23] MEDS: metoprolol succinate 25mg (24-HOUR) SR. Tablet PO SCH (08:25)
[2018-01-23] MEDS: allopurinol 100mg tablet PO SCH (08:25)
[2018-01-23] MEDS: clopidogrel 75mg tablet PO SCH (08:25)
[2018-01-23] MEDS: aspirin 81mg tablet.DR PO SCH (08:25)
[2018-01-23] MEDS: midodrine tablet 2.5 MG TABLET PO SCH ×2 (08:26→17:18)
[2018-01-23] MEDS: nicotine 14mg patch - 24hr TD SCH (08:27)
[2018-01-23] MEDS: albumin (human) 25% 100ml IV 100 ML IV SCH (08:28)
[2018-01-23] MEDS: K and/or MAG REPLACEMENT MC SCH (08:29)
[2018-01-23] MEDS: insulin Lispro (HumaLOG) vial - multi-dose SQ SCH ×3 (08:44→19:08)
[2018-01-23] MEDS: HYDROcodone/acetaminophen 5mg/325mg tablet PO PRN (08:45)
[2018-01-23] MEDS: QUEtiapine 25mg tablet PO SCH (21:07)
[2018-01-23] MEDS: insulin glargine (Lantus) pen - multi-dose SQ SCH (21:14)
[2018-01-23] MEDS: polyethylene glycol 3350 17gm powd pack PO SCH (21:15)
[2018-01-24] MEDS: midodrine tablet 2.5 MG TABLET PO SCH ×3 (01:20→16:53)
[2018-01-24 03:00] VITALS: BP 122/80
[2018-01-24 05:27] LABS: ALBUMIN 3.3 G/DL (3.4-5.0); ANION GAP 10 (8-16); BLOOD UREA NITROGEN 37 MG/DL (7-18); BUN/CREATININE RATIO 13.2 (5.4-32.0); CALCIUM 9.5 MG/DL (8.5-10.1); CHLORIDE 100 MMOL/L (99-107); GLUCOSE 137 MG/DL (70-104); MAGNESIUM 2.3 MG/DL (1.5-2.4); PHOSPHORUS 4.9 MG/DL (2.3-4.5); SODIUM 136 MMOL/L (135-145); TOTAL CARBON DIOXIDE 26.1 MMOL/L (24-32); eGFR 24 ML/MIN
[2018-01-24 06:30] VITALS: BP 145/92
[2018-01-24] MEDS: metoprolol succinate 25mg (24-HOUR) SR. Tablet PO SCH (08:00)
[2018-01-24] MEDS ORDERED: normal saline 1000ml 250 ML IV PRN (08:00)
[2018-01-24] MEDS ORDERED: epoetin 20,000 units/ml inj IV ONE (08:00)
[2018-01-24] MEDS ORDERED: heparin 1,000 units/ml 10ml inj HE ONE ×2 (08:00)
[2018-01-24] MEDS: K and/or MAG REPLACEMENT MC SCH (08:00)
[2018-01-24] MEDS ORDERED: heparin 1,000unit/ml 10ml vial 10 ML IV ONE (08:00)
[2018-01-24] MEDS: amLODIPine 5mg tablet PO SCH (08:00)
[2018-01-24] MEDS: NUT.TX.GLUC.INTOLER,LAC-FR,SOY (GLUCERNA) 237 ML PO SCH ×2 (08:00→18:00)
[2018-01-24] MEDS: aspirin 81mg tablet.DR PO SCH (08:07)
[2018-01-24] MEDS: docusate sod 100mg capsule PO SCH ×2 (08:07→21:48)
[2018-01-24] MEDS: duloxetine 30mg CAPSULE.DR PO SCH (08:07)
[2018-01-24] MEDS: pantoprazole 40mg Tablet.DR PO SCH ×2 (08:07→21:49)
[2018-01-24] MEDS: clopidogrel 75mg tablet PO SCH (08:07)
[2018-01-24] MEDS: atorvastatin 20mg tablet PO SCH (08:07)
[2018-01-24] MEDS: allopurinol 100mg tablet PO SCH (08:07)
[2018-01-24] MEDS: nicotine 14mg patch - 24hr TD SCH (08:08)
[2018-01-24] MEDS: insulin Lispro (HumaLOG) vial - multi-dose SQ SCH ×3 (08:14→21:47)
[2018-01-24 09:45] LABS: BASOPHILS % (AUTO) 0.4 % (0-1); EOSINOPHILS # (AUTO) 0.3 X10'3 (0-0.9); EOSINOPHILS % (AUTO) 3.3 % (0-6); HEMATOCRIT 38.7 % (42.0-52.0); HEMOGLOBIN 12.8 g/dl (14.0-17.9); LYMPHOCYTES # (AUTO) 1.9 X10'3 (1.1-4.8); LYMPHOCYTES % (AUTO) 23.5 % (21-51); MEAN CORPUSCULAR HEMOGLOBIN 29.3 PG (27.0-31.0); MEAN CORPUSCULAR VOLUME 88.8 FL (78-98); MEAN PLATELET VOLUME 9.3 FL (7.4-10.4); MONOCYTES # (AUTO) 0.7 X10'3 (0-0.9); MONOCYTES % (AUTO) 8.1 % (2-12); NEUTROPHILS # (AUTO) 5.2 X10'3 (1.8-7.7); NEUTROPHILS % (AUTO) 64.7 % (42-75); PLATELET COUNT 259 X10'3 (140-440); RED BLOOD COUNT 4.36 X10'6 (4.70-6.10); RED CELL DISTRIBUTION WIDTH 16.4 % (11.5-14.5)
[2018-01-24] MEDS: ondansetron/PF 4mg/2ml inj IV PRN ×2 (09:53→16:55)
[2018-01-24 11:00] VITALS: BP 96/71
[2018-01-24 15:00] VITALS: BP 135/97
[2018-01-24] MEDS: magnesium hydroxide 30ml (MOM) UD suspension PO PRN (17:01)
[2018-01-24] MEDS: metoclopramide 5 mg/ml inj IV PRN (18:46)
[2018-01-24 19:00] VITALS: BP 158/102
[2018-01-24] MEDS ORDERED: Lactulose Enema **for rectal use only RC ONE ×2 (19:30)
[2018-01-24] MEDS: albuterol 2.5 MG/3 ML nebule NEB SCH (21:11)
[2018-01-24] MEDS: BUDESONIDE 0.25 MG/2 ML AMPUL.NEB IH SCH (21:11)
[2018-01-24] MEDS: insulin glargine (Lantus) pen - multi-dose SQ SCH (21:45)
[2018-01-24] MEDS: QUEtiapine 25mg tablet PO SCH (21:48)
[2018-01-24] MEDS: polyethylene glycol 3350 17gm powd pack PO SCH (21:51)
[2018-01-24] MEDS: HYDROcodone/acetaminophen 5mg/325mg tablet PO PRN (21:55)
[2018-01-24 23:00] VITALS: BP 105/74
[2018-01-25] MEDS: midodrine tablet 2.5 MG TABLET PO SCH ×3 (00:21→16:12)
[2018-01-25 03:00] VITALS: BP 113/76
[2018-01-25 05:49] LABS: BASOPHILS % (AUTO) 0.5 % (0-1); EOSINOPHILS # (AUTO) 0.2 X10'3 (0-0.9); EOSINOPHILS % (AUTO) 2.6 % (0-6); HEMATOCRIT 36.9 % (42.0-52.0); LYMPHOCYTES # (AUTO) 2.3 X10'3 (1.1-4.8); LYMPHOCYTES % (AUTO) 26.5 % (21-51); MEAN CORPUSCULAR HEMOGLOBIN 28.9 PG (27.0-31.0); MEAN CORPUSCULAR HGB CONC 32.5 % (33.0-36.5); MEAN PLATELET VOLUME 8.8 FL (7.4-10.4); MONOCYTES # (AUTO) 0.9 X10'3 (0-0.9); NEUTROPHILS # (AUTO) 5.1 X10'3 (1.8-7.7); NEUTROPHILS % (AUTO) 59.4 % (42-75); PLATELET COUNT 252 X10'3 (140-440); RED BLOOD COUNT 4.15 X10'6 (4.70-6.10); RED CELL DISTRIBUTION WIDTH 16.6 % (11.5-14.5); WHITE BLOOD COUNT 8.6 X10'3 (4.5-11.0)
[2018-01-25 06:00] VITALS: BP 146/90
[2018-01-25 06:12] LABS: ALBUMIN 3.4 G/DL (3.4-5.0); ANION GAP 8 (8-16); BLOOD UREA NITROGEN 30 MG/DL (7-18); BUN/CREATININE RATIO 10.2 (5.4-32.0); CALCIUM 9.8 MG/DL (8.5-10.1); CHLORIDE 98 MMOL/L (99-107); CREATININE 2.93 MG/DL (0.60-1.10); GLUCOSE 146 MG/DL (70-104); MAGNESIUM 2.4 MG/DL (1.5-2.4); PHOSPHORUS 4.5 MG/DL (2.3-4.5); POTASSIUM 4.3 MMOL/L (3.5-5.1); SODIUM 136 MMOL/L (135-145); TOTAL CARBON DIOXIDE 30.2 MMOL/L (24-32); eGFR 23 ML/MIN
[2018-01-25] MEDS: albuterol 2.5 MG/3 ML nebule NEB SCH ×4 (07:00→19:15)
[2018-01-25] MEDS: NUT.TX.GLUC.INTOLER,LAC-FR,SOY (GLUCERNA) 237 ML PO SCH ×3 (08:00→18:00)
[2018-01-25] MEDS: K and/or MAG REPLACEMENT MC SCH (08:00)
[2018-01-25] MEDS: BUDESONIDE 0.25 MG/2 ML AMPUL.NEB IH SCH ×2 (08:00→19:15)
[2018-01-25] MEDS: docusate sod 100mg capsule PO SCH ×2 (08:56→19:20)
[2018-01-25] MEDS: duloxetine 30mg CAPSULE.DR PO SCH (08:57)
[2018-01-25] MEDS: atorvastatin 20mg tablet PO SCH (09:00)
[2018-01-25] MEDS: aspirin 81mg tablet.DR PO SCH (09:00)
[2018-01-25] MEDS: amLODIPine 5mg tablet PO SCH (09:07)
[2018-01-25] MEDS: clopidogrel 75mg tablet PO SCH (09:08)
[2018-01-25] MEDS: pantoprazole 40mg Tablet.DR PO SCH ×2 (09:09→19:21)
[2018-01-25] MEDS: metoprolol succinate 25mg (24-HOUR) SR. Tablet PO SCH (09:14)
[2018-01-25] MEDS: allopurinol 100mg tablet PO SCH (09:15)
[2018-01-25] MEDS: nicotine 14mg patch - 24hr TD SCH (09:15)
[2018-01-25] MEDS: insulin Lispro (HumaLOG) vial - multi-dose SQ SCH ×3 (09:21→19:23)
[2018-01-25 11:00] VITALS: BP 143/84
[2018-01-25] MEDS: metoclopramide 10mg tablet PO SCH ×2 (11:52→17:02)
[2018-01-25 15:00] VITALS: BP 118/76
[2018-01-25] MEDS ORDERED: lactulose 20gm/30ml cup PO ONE (16:40)
[2018-01-25 19:00] VITALS: BP 126/75
[2018-01-25] MEDS: polyethylene glycol 3350 17gm powd pack PO SCH (21:00)
[2018-01-25] MEDS: dextrose ORAL solution 15 GM/59 ML bottle PO PRN ×2 (21:07→21:35)
[2018-01-25] MEDS: QUEtiapine 25mg tablet PO SCH (22:26)
[2018-01-25] MEDS: insulin glargine (Lantus) pen - multi-dose SQ SCH (22:48)
[2018-01-25 23:00] VITALS: BP 124/76
[2018-01-26 03:00] VITALS: BP 141/78
[2018-01-26 06:00] VITALS: BP 118/83
[2018-01-26] MEDS: metoclopramide 10mg tablet PO SCH ×3 (07:00→16:52)
[2018-01-26] MEDS: albuterol 2.5 MG/3 ML nebule NEB SCH ×4 (07:00→20:43)
[2018-01-26] MEDS ORDERED: heparin 1,000 units/ml 10ml inj HE ONE ×2 (08:00)
[2018-01-26] MEDS ORDERED: epoetin 20,000 units/ml inj IV ONE (08:00)
[2018-01-26] MEDS: NUT.TX.GLUC.INTOLER,LAC-FR,SOY (GLUCERNA) 237 ML PO SCH ×3 (08:00→18:00)
[2018-01-26] MEDS: metoprolol succinate 25mg (24-HOUR) SR. Tablet PO SCH (08:00)
[2018-01-26] MEDS: pantoprazole 40mg Tablet.DR PO SCH ×2 (08:00→20:27)
[2018-01-26] MEDS ORDERED: heparin 1,000unit/ml 10ml vial 10 ML IV ONE (08:00)
[2018-01-26] MEDS ORDERED: normal saline 1000ml 250 ML IV PRN (08:00)
[2018-01-26] MEDS: nicotine 14mg patch - 24hr TD SCH (08:00)
[2018-01-26] MEDS: BUDESONIDE 0.25 MG/2 ML AMPUL.NEB IH SCH ×2 (08:00→20:00)
[2018-01-26] MEDS: K and/or MAG REPLACEMENT MC SCH (08:00)
[2018-01-26] MEDS: atorvastatin 20mg tablet PO SCH (08:49)
[2018-01-26] MEDS: docusate sod 100mg capsule PO SCH ×2 (08:50→20:26)
[2018-01-26] MEDS: aspirin 81mg tablet.DR PO SCH (08:50)
[2018-01-26] MEDS: allopurinol 100mg tablet PO SCH (08:50)
[2018-01-26] MEDS: clopidogrel 75mg tablet PO SCH (08:50)
[2018-01-26] MEDS: duloxetine 30mg CAPSULE.DR PO SCH (08:51)
[2018-01-26] MEDS: midodrine tablet 2.5 MG TABLET PO SCH ×3 (08:56→16:52)
[2018-01-26] MEDS: insulin Lispro (HumaLOG) vial - multi-dose SQ SCH ×2 (10:22→19:34)
[2018-01-26 11:00] VITALS: BP 144/91
[2018-01-26 11:09] LABS: BASOPHILS % (AUTO) 0.3 % (0-1); EOSINOPHILS # (AUTO) 0.2 X10'3 (0-0.9); EOSINOPHILS % (AUTO) 3.4 % (0-6); HEMATOCRIT 34.9 % (42.0-52.0); HEMOGLOBIN 11.5 g/dl (14.0-17.9); LYMPHOCYTES # (AUTO) 1.6 X10'3 (1.1-4.8); LYMPHOCYTES % (AUTO) 23.3 % (21-51); MEAN CORPUSCULAR HEMOGLOBIN 29.2 PG (27.0-31.0); MEAN CORPUSCULAR HGB CONC 32.9 % (33.0-36.5); MEAN CORPUSCULAR VOLUME 88.7 FL (78-98); MEAN PLATELET VOLUME 9.4 FL (7.4-10.4); MONOCYTES # (AUTO) 0.8 X10'3 (0-0.9); MONOCYTES % (AUTO) 10.6 % (2-12); NEUTROPHILS # (AUTO) 4.4 X10'3 (1.8-7.7); NEUTROPHILS % (AUTO) 62.4 % (42-75); PLATELET COUNT 238 X10'3 (140-440); RED BLOOD COUNT 3.94 X10'6 (4.70-6.10); RED CELL DISTRIBUTION WIDTH 16.8 % (11.5-14.5); WHITE BLOOD COUNT 7.1 X10'3 (4.5-11.0)
[2018-01-26 11:25] LABS: ALANINE AMINOTRANSFERASE 27 U/L (12-78); ALBUMIN 3.4 G/DL (3.4-5.0); ALBUMIN/GLOBULIN RATIO 0.8 (1.1-1.5); ALKALINE PHOSPHATASE 118 IU/L (46-116); ANION GAP 8 (8-16); ASPARTATE AMINO TRANSFERASE 27 U/L (10-37); BILIRUBIN,TOTAL 0.5 MG/DL (0.1-1.0); CALCIUM 9.2 MG/DL (8.5-10.1); CHLORIDE 97 MMOL/L (99-107); CREATININE 3.37 MG/DL (0.60-1.10); GLUCOSE 257 MG/DL (70-104); POTASSIUM 4.2 MMOL/L (3.5-5.1); SODIUM 134 MMOL/L (135-145); TOTAL CARBON DIOXIDE 29.1 MMOL/L (24-32); TOTAL PROTEIN 7.9 G/DL (6.4-8.2); eGFR 19 ML/MIN
[2018-01-26 11:47] LABS: BLOOD UREA NITROGEN 42 MG/DL (7-18); BUN/CREATININE RATIO 12.5 (5.4-32.0)
[2018-01-26] MEDS ORDERED: mineral oil 133ml enema RC ONE (13:55)
[2018-01-26 15:00] VITALS: BP 118/74
[2018-01-26 18:00] VITALS: BP 103/67
[2018-01-26] MEDS: polyethylene glycol 3350 17gm powd pack PO SCH (21:00)
[2018-01-26] MEDS: insulin glargine (Lantus) pen - multi-dose SQ SCH (21:34)
[2018-01-26] MEDS: QUEtiapine 25mg tablet PO SCH (21:35)
[2018-01-26 22:00] VITALS: BP 100/60
[2018-01-27] MEDS: midodrine tablet 2.5 MG TABLET PO SCH ×3 (00:39→17:29)
[2018-01-27 02:00] VITALS: BP 124/78
[2018-01-27 04:05] VITALS: BP 117/75
[2018-01-27 08:00] VITALS: BP 101/62
[2018-01-27] MEDS: NUT.TX.GLUC.INTOLER,LAC-FR,SOY (GLUCERNA) 237 ML PO SCH ×3 (08:00→17:53)
[2018-01-27] MEDS: K and/or MAG REPLACEMENT MC SCH (08:00)
[2018-01-27] MEDS ORDERED: amLODIPine 5mg tablet PO SCH (08:00)
[2018-01-27 08:10] VITALS: BP 108/74
[2018-01-27] MEDS: docusate sod 100mg capsule PO SCH ×2 (08:58→19:53)
[2018-01-27] MEDS: metoclopramide 10mg tablet PO SCH ×3 (08:58→17:10)
[2018-01-27] MEDS: duloxetine 30mg CAPSULE.DR PO SCH (08:58)
[2018-01-27] MEDS: pantoprazole 40mg Tablet.DR PO SCH ×2 (08:59→19:54)
[2018-01-27] MEDS: clopidogrel 75mg tablet PO SCH (09:00)
[2018-01-27] MEDS: allopurinol 100mg tablet PO SCH (09:00)
[2018-01-27] MEDS: atorvastatin 20mg tablet PO SCH (09:00)
[2018-01-27] MEDS: aspirin 81mg tablet.DR PO SCH (09:01)
[2018-01-27] MEDS: nicotine 14mg patch - 24hr TD SCH (09:01)
[2018-01-27] MEDS: metoprolol succinate 25mg (24-HOUR) SR. Tablet PO SCH (09:01)
[2018-01-27] MEDS: insulin Lispro (HumaLOG) vial - multi-dose SQ SCH ×3 (09:09→19:53)
[2018-01-27 11:18] LABS: HEP B CORE AB, IGM Negative (Negative); HEP B CORE AB, TOT Negative (Negative)
[2018-01-27 11:40] VITALS: BP 136/90
[2018-01-27] MEDS ORDERED: midodrine tablet 2.5 MG TABLET PO SCH (16:00)
[2018-01-27] MEDS ORDERED: midodrine tablet 2.5 MG TABLET PO ONE (17:30)
[2018-01-27 18:00] VITALS: BP 153/80
[2018-01-27] MEDS: QUEtiapine 25mg tablet PO SCH (21:41)
[2018-01-27] MEDS: polyethylene glycol 3350 17gm powd pack PO SCH (21:41)
[2018-01-27] MEDS: insulin glargine (Lantus) pen - multi-dose SQ SCH (21:56)
[2018-01-28] VITALS: BP_SYST 140; BP_SYST 150; BP_DIAS 78; BP_DIAS 83
[2018-01-28 05:18] LABS: HEMATOCRIT 37.9 % (42.0-52.0); HEMOGLOBIN 12.4 g/dl (14.0-17.9); MEAN CORPUSCULAR HEMOGLOBIN 29.1 PG (27.0-31.0); MEAN CORPUSCULAR HGB CONC 32.7 % (33.0-36.5); MEAN CORPUSCULAR VOLUME 88.9 FL (78-98); MEAN PLATELET VOLUME 9.2 FL (7.4-10.4); PLATELET COUNT 243 X10'3 (140-440); RED BLOOD COUNT 4.27 X10'6 (4.70-6.10); RED CELL DISTRIBUTION WIDTH 16.1 % (11.5-14.5); WHITE BLOOD COUNT 8.3 X10'3 (4.5-11.0)
[2018-01-28 07:12] VITALS: BP 134/86
[2018-01-28] MEDS: allopurinol 100mg tablet PO SCH (07:36)
[2018-01-28] MEDS: duloxetine 30mg CAPSULE.DR PO SCH (07:37)
[2018-01-28] MEDS: clopidogrel 75mg tablet PO SCH (07:37)
[2018-01-28] MEDS: docusate sod 100mg capsule PO SCH ×2 (07:37→21:16)
[2018-01-28] MEDS: atorvastatin 20mg tablet PO SCH (07:38)
[2018-01-28] MEDS: metoclopramide 10mg tablet PO SCH ×3 (07:48→17:04)
[2018-01-28] MEDS ORDERED: heparin 1,000 units/ml 10ml inj HE ONE ×2 (08:00)
[2018-01-28] MEDS: midodrine tablet 2.5 MG TABLET PO SCH ×3 (08:00→17:04)
[2018-01-28] MEDS: NUT.TX.GLUC.INTOLER,LAC-FR,SOY (GLUCERNA) 237 ML PO SCH ×3 (08:00→19:46)
[2018-01-28] MEDS: pantoprazole 40mg Tablet.DR PO SCH ×2 (08:00→21:17)
[2018-01-28] MEDS ORDERED: metoprolol succinate 25mg (24-HOUR) SR. Tablet PO SCH (08:00)
[2018-01-28] MEDS ORDERED: heparin 1,000unit/ml 10ml vial 10 ML IV ONE (08:00)
[2018-01-28] MEDS ORDERED: epoetin 20,000 units/ml inj IV ONE (08:00)
[2018-01-28] MEDS: nicotine 14mg patch - 24hr TD SCH (08:00)
[2018-01-28] MEDS: K and/or MAG REPLACEMENT MC SCH (08:00)
[2018-01-28] MEDS: aspirin 81mg tablet.DR PO SCH (08:00)
[2018-01-28] MEDS ORDERED: normal saline 1000ml 250 ML IV PRN (08:00)
[2018-01-28] MEDS: insulin Lispro (HumaLOG) vial - multi-dose SQ SCH ×3 (09:26→21:39)
[2018-01-28 11:00] VITALS: BP 149/94
[2018-01-28] MEDS: dextrose ORAL solution 15 GM/59 ML bottle PO PRN ×2 (14:32→14:52)
[2018-01-28 15:55] VITALS: BP_SYST 130; BP_SYST 71; BP_SYST 91; BP_DIAS 46; BP_DIAS 66; BP_DIAS 79
[2018-01-28 20:00] VITALS: BP 150/85
[2018-01-28] MEDS: QUEtiapine 25mg tablet PO SCH (21:17)
[2018-01-28] MEDS: polyethylene glycol 3350 17gm powd pack PO SCH (21:17)
[2018-01-28] MEDS: insulin glargine (Lantus) pen - multi-dose SQ SCH (21:38)
[2018-01-29] VITALS: BP 135/83
[2018-01-29] MEDS: temazepam 15mg capsule PO PRN ×2 (00:18→21:14)
[2018-01-29 05:08] LABS: BASOPHILS % (AUTO) 0.4 % (0-1); EOSINOPHILS # (AUTO) 0.3 X10'3 (0-0.9); EOSINOPHILS % (AUTO) 4.2 % (0-6); HEMATOCRIT 35.6 % (42.0-52.0); HEMOGLOBIN 11.6 g/dl (14.0-17.9); LYMPHOCYTES # (AUTO) 2.3 X10'3 (1.1-4.8); LYMPHOCYTES % (AUTO) 29.4 % (21-51); MEAN CORPUSCULAR HEMOGLOBIN 28.8 PG (27.0-31.0); MEAN CORPUSCULAR HGB CONC 32.7 % (33.0-36.5); MEAN CORPUSCULAR VOLUME 88.1 FL (78-98); MONOCYTES # (AUTO) 0.9 X10'3 (0-0.9); MONOCYTES % (AUTO) 10.8 % (2-12); NEUTROPHILS # (AUTO) 4.4 X10'3 (1.8-7.7); NEUTROPHILS % (AUTO) 55.2 % (42-75); PLATELET COUNT 226 X10'3 (140-440); RED BLOOD COUNT 4.04 X10'6 (4.70-6.10); RED CELL DISTRIBUTION WIDTH 16.6 % (11.5-14.5)
[2018-01-29 05:29] LABS: ALBUMIN 3.2 G/DL (3.4-5.0); ANION GAP 9 (8-16); BLOOD UREA NITROGEN 25 MG/DL (7-18); BUN/CREATININE RATIO 9.8 (5.4-32.0); CALCIUM 9.3 MG/DL (8.5-10.1); CHLORIDE 99 MMOL/L (99-107); CREATININE 2.55 MG/DL (0.60-1.10); GLUCOSE 119 MG/DL (70-104); POTASSIUM 4.1 MMOL/L (3.5-5.1); SODIUM 136 MMOL/L (135-145); TOTAL CARBON DIOXIDE 28.5 MMOL/L (24-32); eGFR 27 ML/MIN
[2018-01-29] MEDS: aspirin 81mg tablet.DR PO SCH (07:18)
[2018-01-29] MEDS: nicotine 14mg patch - 24hr TD SCH (07:18)
[2018-01-29] MEDS: pantoprazole 40mg Tablet.DR PO SCH ×2 (07:18→21:12)
[2018-01-29] MEDS: clopidogrel 75mg tablet PO SCH (07:18)
[2018-01-29] MEDS: atorvastatin 20mg tablet PO SCH (07:18)
[2018-01-29] MEDS: docusate sod 100mg capsule PO SCH ×2 (07:18→21:11)
[2018-01-29] MEDS: midodrine tablet 2.5 MG TABLET PO SCH ×3 (07:18→19:50)
[2018-01-29] MEDS: duloxetine 30mg CAPSULE.DR PO SCH (07:19)
[2018-01-29] MEDS: metoclopramide 10mg tablet PO SCH ×3 (07:19→17:21)
[2018-01-29] MEDS: allopurinol 100mg tablet PO SCH (07:20)
[2018-01-29 08:00] VITALS: BP 145/93
[2018-01-29] MEDS: K and/or MAG REPLACEMENT MC SCH (08:00)
[2018-01-29] MEDS: NUT.TX.GLUC.INTOLER,LAC-FR,SOY (GLUCERNA) 237 ML PO SCH ×3 (08:45→17:34)
[2018-01-29] MEDS: insulin Lispro (HumaLOG) vial - multi-dose SQ SCH ×3 (08:52→19:20)
[2018-01-29 11:06] VITALS: BP 130/81
[2018-01-29] MEDS: ondansetron/PF 4mg/2ml inj IV PRN (13:00)
[2018-01-29] MEDS ORDERED: magnesium citrate 296ml oral solution PO ONE (16:45)
[2018-01-29 20:00] VITALS: BP 146/87
[2018-01-29] MEDS: quetiapine 100mg tablet PO SCH (21:11)
[2018-01-29] MEDS: polyethylene glycol 3350 17gm powd pack PO SCH (21:12)
[2018-01-29] MEDS: insulin glargine (Lantus) pen - multi-dose SQ SCH (21:26)
[2018-01-29] MEDS: dextrose ORAL solution 15 GM/59 ML bottle PO PRN ×2 (23:45→23:54)
[2018-01-30] VITALS: BP 100/63
[2018-01-30 07:26] VITALS: BP 142/92
[2018-01-30] MEDS: aspirin 81mg tablet.DR PO SCH (07:40)
[2018-01-30] MEDS: metoclopramide 10mg tablet PO SCH ×3 (07:40→17:06)
[2018-01-30] MEDS: clopidogrel 75mg tablet PO SCH (07:40)
[2018-01-30] MEDS: midodrine tablet 2.5 MG TABLET PO SCH ×3 (07:40→17:05)
[2018-01-30] MEDS: docusate sod 100mg capsule PO SCH ×2 (07:40→19:08)
[2018-01-30] MEDS: duloxetine 30mg CAPSULE.DR PO SCH (07:40)
[2018-01-30] MEDS: atorvastatin 20mg tablet PO SCH (07:40)
[2018-01-30] MEDS: allopurinol 100mg tablet PO SCH (07:40)
[2018-01-30] MEDS: nicotine 14mg patch - 24hr TD SCH (07:41)
[2018-01-30] MEDS: K and/or MAG REPLACEMENT MC SCH (08:00)
[2018-01-30] MEDS: NUT.TX.GLUC.INTOLER,LAC-FR,SOY (GLUCERNA) 237 ML PO SCH ×3 (08:00→13:32)
[2018-01-30] MEDS: pantoprazole 40mg Tablet.DR PO SCH ×2 (10:49→19:08)
[2018-01-30 11:00] VITALS: BP 130/78
[2018-01-30] MEDS: insulin Lispro (HumaLOG) vial - multi-dose SQ SCH ×2 (12:48→19:07)
[2018-01-30 15:16] VITALS: BP_SYST 152; BP_SYST 67; BP_SYST 97; BP_DIAS 45; BP_DIAS 59; BP_DIAS 87
[2018-01-30 18:00] VITALS: BP 158/97
[2018-01-30] MEDS: quetiapine 100mg tablet PO SCH (21:10)
[2018-01-30] MEDS: polyethylene glycol 3350 17gm powd pack PO SCH (21:10)
[2018-01-30] MEDS: insulin glargine (Lantus) pen - multi-dose SQ SCH (21:10)
[2018-01-31] VITALS: BP 144/90
[2018-01-31 07:03] VITALS: BP 123/78
[2018-01-31] MEDS: aspirin 81mg tablet.DR PO SCH (07:42)
[2018-01-31] MEDS: midodrine tablet 2.5 MG TABLET PO SCH ×3 (07:42→17:08)
[2018-01-31] MEDS: metoclopramide 10mg tablet PO SCH ×3 (07:42→17:08)
[2018-01-31] MEDS: atorvastatin 20mg tablet PO SCH (07:43)
[2018-01-31] MEDS: clopidogrel 75mg tablet PO SCH (07:44)
[2018-01-31] MEDS: pantoprazole 40mg Tablet.DR PO SCH ×2 (07:44→21:21)
[2018-01-31] MEDS: docusate sod 100mg capsule PO SCH ×2 (07:44→21:21)
[2018-01-31] MEDS: duloxetine 30mg CAPSULE.DR PO SCH (07:44)
[2018-01-31] MEDS: allopurinol 100mg tablet PO SCH (07:44)
[2018-01-31] MEDS: NUT.TX.GLUC.INTOLER,LAC-FR,SOY (GLUCERNA) 237 ML PO SCH ×3 (07:50→19:41)
[2018-01-31] MEDS: insulin Lispro (HumaLOG) vial - multi-dose SQ SCH ×3 (08:50→19:34)
[2018-01-31] MEDS: K and/or MAG REPLACEMENT MC SCH (08:55)
[2018-01-31] MEDS: nicotine 14mg patch - 24hr TD SCH (08:55)
[2018-01-31 11:41] VITALS: BP 114/74
[2018-01-31] MEDS: dextrose ORAL solution 15 GM/59 ML bottle PO PRN ×2 (17:07→17:20)
[2018-01-31 20:00] VITALS: BP 170/93
[2018-01-31] MEDS: polyethylene glycol 3350 17gm powd pack PO SCH (21:21)
[2018-01-31] MEDS: quetiapine 100mg tablet PO SCH (21:21)
[2018-01-31] MEDS: insulin glargine (Lantus) pen - multi-dose SQ SCH (21:35)
[2018-02-01] VITALS: BP 157/91
[2018-02-01 06:22] LABS: ALANINE AMINOTRANSFERASE 25 U/L (12-78); ALBUMIN 3.1 G/DL (3.4-5.0); ALBUMIN/GLOBULIN RATIO 0.7 (1.1-1.5); ALKALINE PHOSPHATASE 105 IU/L (46-116); ANION GAP 12 (8-16); ASPARTATE AMINO TRANSFERASE 25 U/L (10-37); BILIRUBIN,TOTAL 0.4 MG/DL (0.1-1.0); BLOOD UREA NITROGEN 44 MG/DL (7-18); BUN/CREATININE RATIO 15.8 (5.4-32.0); CALCIUM 9.4 MG/DL (8.5-10.1); CHLORIDE 101 MMOL/L (99-107); CREATININE 2.78 MG/DL (0.60-1.10); GLUCOSE 141 MG/DL (70-104); MAGNESIUM 2.3 MG/DL (1.5-2.4); PHOSPHORUS 5.7 MG/DL (2.3-4.5); POTASSIUM 4.2 MMOL/L (3.5-5.1); SODIUM 140 MMOL/L (135-145); TOTAL CARBON DIOXIDE 27.1 MMOL/L (24-32); TOTAL PROTEIN 7.4 G/DL (6.4-8.2); eGFR 24 ML/MIN
[2018-02-01 08:00] VITALS: BP 139/86
[2018-02-01] MEDS ORDERED: heparin 1,000unit/ml 10ml vial 10 ML IV ONE (08:00)
[2018-02-01] MEDS ORDERED: normal saline 1000ml 250 ML IV PRN (08:00)
[2018-02-01] MEDS: K and/or MAG REPLACEMENT MC SCH (08:00)
[2018-02-01] MEDS ORDERED: heparin 1,000 units/ml 10ml inj HE ONE ×2 (08:00)
[2018-02-01] MEDS: clopidogrel 75mg tablet PO SCH (08:10)
[2018-02-01] MEDS: atorvastatin 20mg tablet PO SCH (08:10)
[2018-02-01] MEDS: midodrine tablet 2.5 MG TABLET PO SCH ×3 (08:10→17:26)
[2018-02-01] MEDS: aspirin 81mg tablet.DR PO SCH (08:10)
[2018-02-01] MEDS: docusate sod 100mg capsule PO SCH ×2 (08:11→21:55)
[2018-02-01] MEDS: duloxetine 30mg CAPSULE.DR PO SCH (08:11)
[2018-02-01] MEDS: pantoprazole 40mg Tablet.DR PO SCH ×2 (08:11→21:55)
[2018-02-01] MEDS: allopurinol 100mg tablet PO SCH (08:11)
[2018-02-01] MEDS: nicotine 14mg patch - 24hr TD SCH (08:12)
[2018-02-01] MEDS: NUT.TX.GLUC.INTOLER,LAC-FR,SOY (GLUCERNA) 237 ML PO SCH ×3 (08:13→17:54)
[2018-02-01] MEDS: metoclopramide 10mg tablet PO SCH ×3 (08:15→17:25)
[2018-02-01] MEDS: insulin Lispro (HumaLOG) vial - multi-dose SQ SCH ×3 (09:11→20:09)
[2018-02-01 11:24] VITALS: BP 151/87
[2018-02-01] MEDS: dextrose ORAL solution 15 GM/59 ML bottle PO PRN (17:31)
[2018-02-01 20:00] VITALS: BP 130/70
[2018-02-01] MEDS: quetiapine 100mg tablet PO SCH (21:55)
[2018-02-01] MEDS: polyethylene glycol 3350 17gm powd pack PO SCH (21:55)
[2018-02-01] MEDS: insulin glargine (Lantus) pen - multi-dose SQ SCH (22:03)
[2018-02-02] VITALS: BP 148/97
[2018-02-02 08:00] VITALS: BP 143/91
[2018-02-02] MEDS: NUT.TX.GLUC.INTOLER,LAC-FR,SOY (GLUCERNA) 237 ML PO SCH ×2 (08:00→12:38)
[2018-02-02] MEDS: K and/or MAG REPLACEMENT MC SCH (08:00)
[2018-02-02] MEDS: allopurinol 100mg tablet PO SCH (08:10)
[2018-02-02] MEDS: duloxetine 30mg CAPSULE.DR PO SCH (08:10)
[2018-02-02] MEDS: insulin Lispro (HumaLOG) vial - multi-dose SQ SCH ×2 (08:10→13:44)
[2018-02-02] MEDS: pantoprazole 40mg Tablet.DR PO SCH (08:10)
[2018-02-02] MEDS: metoclopramide 10mg tablet PO SCH ×3 (08:11→17:11)
[2018-02-02] MEDS: nicotine 14mg patch - 24hr TD SCH (08:11)
[2018-02-02] MEDS: midodrine tablet 2.5 MG TABLET PO SCH ×3 (08:11→17:11)
[2018-02-02] MEDS: aspirin 81mg tablet.DR PO SCH (08:11)
[2018-02-02] MEDS: docusate sod 100mg capsule PO SCH (08:11)
[2018-02-02] MEDS: atorvastatin 20mg tablet PO SCH (08:11)
[2018-02-02] MEDS: clopidogrel 75mg tablet PO SCH (08:11)
[2018-02-02] MEDS ORDERED: LISI2.5T2 PO (15:04)
[2018-02-02] MEDS ORDERED: LANTUS SQ (15:04)
[2018-02-02] MEDS ORDERED: NICO-631 TD (15:04)
[2018-02-02] MEDS ORDERED: METO-395 PO (15:04)
[2018-02-02] MEDS ORDERED: ATOR20TA66 PO (15:04)
[2018-02-02] MEDS ORDERED: MIDO5TAB PO (15:04)
== END 2018-02-02 18:09 | disposition home or self-care (01) | DRG 673 ==
LOC: ER 10:33 → OBSVTOIN 12:22 → ED HOLD 12:22 → PCU 3S 13:40 → SUR 3N 01-27 04:06
PROVIDERS: ADMIT Internal Medicine; ATTEND Family Medicine
PROC: 0JH63XZ Insertion of Tunneled Vascular Access Device into Chest Subcutaneous Tissue and Fascia, Percutaneous Approach (ICD-10-PCS; principal; 2018-01-18)
PROC: 5A1D70Z Performance of Urinary Filtration, Intermittent, Less than 6 Hours Per Day (ICD-10-PCS; 2018-01-18)
PROC: 02HV33Z Insertion of Infusion Device into Superior Vena Cava, Percutaneous Approach (ICD-10-PCS; 2018-01-18)
PROC: B5181ZA Fluoroscopy of Superior Vena Cava using Low Osmolar Contrast, Guidance (ICD-10-PCS; 2018-01-18)
PROC: B548ZZA Ultrasonography of Superior Vena Cava, Guidance (ICD-10-PCS; 2018-01-18)
PROC: 5A1D70Z Performance of Urinary Filtration, Intermittent, Less than 6 Hours Per Day (ICD-10-PCS; 2018-01-21)
PROC: 5A1D70Z Performance of Urinary Filtration, Intermittent, Less than 6 Hours Per Day (ICD-10-PCS; 2018-01-24)
PROC: 5A1D70Z Performance of Urinary Filtration, Intermittent, Less than 6 Hours Per Day (ICD-10-PCS; 2018-01-26)
PROC: 5A1D70Z Performance of Urinary Filtration, Intermittent, Less than 6 Hours Per Day (ICD-10-PCS; 2018-01-28)
PROC: 5A1D70Z Performance of Urinary Filtration, Intermittent, Less than 6 Hours Per Day (ICD-10-PCS; 2018-02-01)
DX: N17.9 Acute kidney failure, unspecified (principal); I50.33 Acute on chronic diastolic (congestive) heart failure; I21.A1 Myocardial infarction type 2; I13.2 Hypertensive heart and chronic kidney disease with heart failure and with stage 5 chronic kidney disease, or end stage renal disease; N18.6 End stage renal disease; E11.22 Type 2 diabetes mellitus with diabetic chronic kidney disease; I95.1 Orthostatic hypotension; D63.1 Anemia in chronic kidney disease; E11.43 Type 2 diabetes mellitus with diabetic autonomic (poly)neuropathy; E11.65 Type 2 diabetes mellitus with hyperglycemia; E86.0 Dehydration; M25.551 Pain in right hip; M54.5 Low back pain; F32.9 Major depressive disorder, single episode, unspecified; F43.10 Post-traumatic stress disorder, unspecified; F60.3 Borderline personality disorder; G47.30 Sleep apnea, unspecified; K31.84 Gastroparesis; G89.29 Other chronic pain; I25.10 Atherosclerotic heart disease of native coronary artery without angina pectoris; J44.9 Chronic obstructive pulmonary disease, unspecified; K59.00 Constipation, unspecified; F12.10 Cannabis abuse, uncomplicated; F17.210 Nicotine dependence, cigarettes, uncomplicated; Z91.15 Patient's noncompliance with renal dialysis; Z95.1 Presence of aortocoronary bypass graft; Z99.2 Dependence on renal dialysis; Z88.8 Allergy status to other drugs, medicaments and biological substances; Z79.4 Long term (current) use of insulin; Z79.899 Other long term (current) drug therapy; Z28.21 Immunization not carried out because of patient refusal
CPT/HCPCS: 36415; 36558; 36600; 71045; 73502; 74018; 76937; 77001; 80048; 80053; 80061; 82150; 82803; 82948; 83036; 83690; 83735; 83880; 84100; 84484; 85018; 85025; 85027; 85610; 85730; 86704; 86705; 86706; 87070; 87340; 93005; 93306; 94640; 94760; 96372; 96374; 96375; 97110; 97116; 97161; 97164; 97530; 99152; 99153; 99285; A9270; C1750; C1894; C9113; G0257; G0378; J0360; J0885; J1630; J1644; J1815; J1940; J2001; J2060; J2250; J2405; J2765; J3010; J3475; J3480; J3490; J7030; J8597; P9047; Q2037